=== PATIENT | male | born 1995 | race Caucasian/White ===

== ENCOUNTER 2017-05-10 07:26 | Emergency (ER) | payer MEDICAID ==
[2017-05-10 09:02] LABS: HEMATOCRIT 46.3 % (42.0-54.0); HEMOGLOBIN 16.1 g/dL (13.5-17.5); LYMPHOCYTES 4.4 % (15-50); MCH 29.4 pg (26.0-34.0); MCHC 34.8 g/dL (31.0-37.0); MCV 84.5 fL (80.0-100.0); MEAN PLATELET VOLUME 11.7 fL (7.4-10.4); NEUTROPHILS 90.4 % (40-80); PLATELET COUNT 192 10x3/uL (130-400); RBC 5.48 10x6/uL (4.20-6.10); RDW 12.4 % (11.5-14.5)
[2017-05-10 09:15] LABS: ALBUMIN 4.4 g/dL (3.4-5.0); ANION GAP 17.6 mmol/L (8-16); BILIRUBIN - TOTAL 0.72 mg/dL (0.2-1.3); CALCIUM 10.1 mg/dL (8.5-10.1); CARBON DIOXIDE 21.6 mmol/L (21.0-32.0); CREATININE - SERUM 1.3 mg/dL (0.6-1.3); POTASSIUM - SERUM 5.2 mmol/L (3.5-5.1)
== END 2017-05-10 10:19 | disposition home or self-care (01) ==
LOC: D.ER 07:26
PROVIDERS: Emergency Medicine
DX: B34.9 Viral infection, unspecified (principal)

== ENCOUNTER 2018-05-24 19:27 | Emergency (ER) | payer OTHER ==
[~2018-05-24] VITALS: Ht 180.3 cm; Wt 77.3 kg
[2018-05-24 19:51] VITALS: Ht 180.3 cm; Wt 77.3 kg
[2018-05-24] MEDS ORDERED: NORCO 10-325 TA1 TAB PO (19:55)
[2018-05-24] MEDS ORDERED: KEFLEX500 MG PO (19:55)
[2018-05-24 21:19] LABS: BASOPHILS 0.2 % (0-2); EOSINOPHILS 0.2 % (0-7); HEMATOCRIT 39.3 % (42.0-54.0); HEMOGLOBIN 13.4 g/dL (13.5-17.5); IMMATURE GRANULOCYTES 0.1 % (0-5); LYMPHOCYTES 5.5 % (15-50); MCH 30.1 pg (26.0-34.0); MCHC 34.1 g/dL (31.0-37.0); MCV 88.3 fL (80.0-100.0); MEAN PLATELET VOLUME 11.8 fL (7.4-10.4); MONOCYTES 6.5 % (2-11); NEUTROPHILS 87.5 % (40-80); PLATELET COUNT 197 10x3/uL (130-400); RBC 4.45 10x6/uL (4.20-6.10); RDW 12.7 % (11.5-14.5); WBC 14.1 10x3/uL (4.8-10.8)
[2018-05-24 22:44] VITALS: BP 156/77
== END 2018-05-24 22:25 | disposition home or self-care (01) ==
LOC: D.ER 19:27
PROVIDERS: Family Medicine
DX: K08.109 Complete loss of teeth, unspecified cause, unspecified class (principal); K08.89 Other specified disorders of teeth and supporting structures